=== PATIENT | male | born 1985 | race Caucasian/White ===

== ENCOUNTER 2023-07-29 17:40 | Inpatient (IN) | payer MEDICARE, SELFPAY ==
[2023-07-29 14:33] VITALS: BP 155/86
[2023-07-29 14:54] LABS: % Basophils 0.9 % (0-2); % Eosinophils 0.9 % (0-6); % Immature Granulocytes 0.2 % (0-0.5); % Lymphocytes 27.7 % (20.5-51.1); % Monocytes 12.4 % (1.7-9.3); % Neutrophils 57.9 % (42.2-75.2); Absolute Basophils 0.1 10^3/uL (0-0.2); Absolute Eosinophils 0.1 10^3/uL (0-0.7); Absolute Lymphocytes 2.7 10^3/uL (1.2-3.4); Absolute Monocytes 1.2 10^3/uL (0.1-0.6); Absolute Neutrophils 5.6 10^3/uL (1.4-6.5); Hematocrit 35.6 % (39.0-52.0); Hemoglobin 12.8 g/dL (13.0-18.0); Mean Corpuscular Volume 72.2 fL (80.0-94.0); Mean Platelet Volume 9.6 fL (7.4-10.4); Nucleated Red Blood Cells % 0 % (-); Platelet Count 234 10^3/uL (130-400); Red Blood Cell Count 4.93 10^6/uL (4.70-6.10); Red Cell Dist. Width 17.3 % (11.5-14.5); White Blood Cell Count 9.6 10^3/uL (4.8-10.8)
[2023-07-29 15:05] LABS: Amphetamines Positive (Negative); Barbiturates Negative (Negative); Benzodiazepines Negative (Negative); Blood Urea Nitrogen 25 mg/dl (9-20); Buprenorphine Negative (Negative); Calcium 9.6 mg/dl (8.4-10.2); Carbon Dioxide 29 mmol/L (22-30); Chloride 98 mmol/L (98-107); Cocaine Negative (Negative); Glucose 110 mg/dl (70-99); Marijuana Positive (Negative); Methadone Negative (Negative); Methamphetamines Positive (Negative); Opiates Negative (Negative); Phencyclidine Negative (Negative); Potassium 2.8 mmol/L (3.5-5.1); Sodium 136 mmol/L (135-145); Tricyclic Antidepressants Negative (Negative); eGFR > 60.00
[2023-07-29 15:06] LABS: Alcohol None Detected
[2023-07-29 15:20] LABS: Fentanyl, Urine Negative (Negative)
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
[2023-07-29] MEDS: KCL 40 MEQ PO (15:50)
[2023-07-29] MEDS: NSS 1000 IV ×2 (15:50→22:06)
[2023-07-29] MEDS: KCL 270 MEQ IV (16:02)
[2023-07-29 16:10] LABS: Creatine Phosphokinase 1594 U/L (55-170)
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
--- NOTE | 2023-07-29 16:55 | PHANOTE ---
Addendum entered by Tracy Hernadez 07/29/23 17:18:
Spoke with nursing office at [facility] in [place]. They stated pt was discharged from them on Levetiracetam 500mg q12, Seroquel 200mg HS, and Metoprolol 50mg Daily. Medication list updated with discharge information.
Original Note:
Med Rec Note:
Pt does not know the doses of his medications, called [facility], neither have any recently fills or prescriptions for Seroquel or Metoprolol. Called [facility] and they don't have any medication information for pt.
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
[2023-07-29 20:26] VITALS: BP 124/82
[2023-07-29] MEDS: KEPPRA 500 MG PO (22:10)
[2023-07-29] MEDS: SEROQUEL 200 MG PO (22:11)
[2023-07-29 22:40] LABS: Urine Albumin Trace (Neg - Trace); Urine Bilirubin Negative (Negative); Urine Character Clear (Clear); Urine Color Yellow; Urine Glucose Negative (Negative); Urine Ketone Trace (Negative); Urine Leukocyte Trace (Negative); Urine Nitrite Negative (Negative); Urine Occult Blood Negative (Negative); Urine Urobilinogen Negative (Neg - 1+)
[2023-07-29 22:54] LABS: Urine Bacteria Moderate (Negative); Urine Hyaline Cast >15 /LPF (0-2); Urine Red Blood Cell 0-2 /HPF (0-2)
[2023-07-29 23:06] VITALS: BMI 41.9
[2023-07-29 23:44] VITALS: BP 121/57
[2023-07-30] VITALS (7 sets, daily range): BP systolic 113–146; BP diastolic 67–89; BMI 41.3; BMI 38.5
[2023-07-30] MEDS: NSS 1000 IV ×3 (06:00→22:50)
[2023-07-30 06:05] LABS: % Basophils 1.2 % (0-2); % Eosinophils 3.6 % (0-6); % Monocytes 14.7 % (1.7-9.3); % Neutrophils 35.5 % (42.2-75.2); Absolute Basophils 0.1 10^3/uL (0-0.2); Absolute Eosinophils 0.2 10^3/uL (0-0.7); Absolute Lymphocytes 1.9 10^3/uL (1.2-3.4); Absolute Monocytes 0.6 10^3/uL (0.1-0.6); Absolute Neutrophils 1.5 10^3/uL (1.4-6.5); Hematocrit 32.8 % (39.0-52.0); Hemoglobin 11.8 g/dL (13.0-18.0); Mean Corpuscular Hgb 26.2 pg (27.0-31.0); Mean Corpuscular Volume 72.9 fL (80.0-94.0); Mean Platelet Volume 10.1 fL (7.4-10.4); Nucleated Red Blood Cells % 0 % (-); Platelet Count 216 10^3/uL (130-400); Red Cell Dist. Width 17.2 % (11.5-14.5); White Blood Cell Count 4.2 10^3/uL (4.8-10.8)
[2023-07-30 06:11] LABS: ALT (SGPT) 52 U/L (0-50); AST (SGOT) 69 U/L (17-59); Albumin 3.7 g/dl (3.5-5.0); Alkaline Phosphatase 95 U/L (38-126); Blood Urea Nitrogen 19 mg/dl (9-20); Calcium 8.7 mg/dl (8.4-10.2); Carbon Dioxide 26 mmol/L (22-30); Chloride 109 mmol/L (98-107); Creatine Phosphokinase 1025 U/L (55-170); Estimated Creatinine Clearance > 125 ml/min; Glucose 116 mg/dl (70-99); Potassium 3.4 mmol/L (3.5-5.1); Sodium 140 mmol/L (135-145); Total Bilirubin 2.2 mg/dl (0.2-1.3); Total Protein 6.7 g/dl (6.3-8.2); eGFR > 60.00
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
[2023-07-30] MEDS: KEPPRA 500 MG PO ×2 (08:06→20:08)
[2023-07-30] MEDS: KCL 40 MEQ PO (08:06)
--- NOTE | 2023-07-30 10:00 | PTCARENOTE ---
Received patient from ED into room 2127. Patient AAOx3, VSS, NSR on matrix bath attendant, ambulatory in room. Patient okay to shower per MD, patient showered and dressed independently, assisted back to bed and onto tele monitor by tech. NSS infusing
through R wrist @ 120 ml/hr. Patient oriented to room and call [place], states no concerns at this time. Psych at bedside with patient.
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
[2023-07-30] MEDS: TOPROL XL 50 MG PO (10:18)
--- NOTE | 2023-07-30 16:21 | CM ---
Initial assessment completed with pt at bedside.
Pt is a 31yr old male admitted with IV Meth use and Hallucinations.
Pt was at [facility] when he left abruptly 2 weeks ago. Per pt, he has been mostly living on the streets since. He came to the hospital when he started to have visual hallucinations.
Pt reports that he has been in and out of rehabs. Previous hospital stay notes talk about outpatient [facility] involvement, but pt says he has not had alot of interaction with them.
SW spoke with Samuel at [facility] and sent clinical information. Samuel working on Rehab placement. Pt verbalizes that he really wants to get clean.
Pt does not have a PCP. Pt uses [facility]
PLAN; Inpt Rehab
[2023-07-30] MEDS: REMERON 7.5 MG PO (22:36)
[2023-07-30] MEDS: MELATONIN 10 MG PO (22:49)
[2023-07-31 03:31] VITALS: BP 150/92
[2023-07-31 06:14] LABS: % Basophils 0.7 % (0-2); % Eosinophils 3.7 % (0-6); % Immature Granulocytes 0.2 % (0-0.5); % Lymphocytes 41.7 % (20.5-51.1); % Monocytes 13.4 % (1.7-9.3); % Neutrophils 40.3 % (42.2-75.2); Absolute Eosinophils 0.2 10^3/uL (0-0.7); Absolute Lymphocytes 2.3 10^3/uL (1.2-3.4); Absolute Monocytes 0.7 10^3/uL (0.1-0.6); Absolute Neutrophils 2.2 10^3/uL (1.4-6.5); Hematocrit 32.9 % (39.0-52.0); Hemoglobin 11.4 g/dL (13.0-18.0); Mean Corp Hgb Conc. 34.7 g/dL (33.0-37.0); Mean Corpuscular Hgb 25.7 pg (27.0-31.0); Mean Corpuscular Volume 74.3 fL (80.0-94.0); Mean Platelet Volume 10.3 fL (7.4-10.4); Nucleated Red Blood Cells % 0 % (-); Platelet Count 213 10^3/uL (130-400); Red Blood Cell Count 4.43 10^6/uL (4.70-6.10); Red Cell Dist. Width 17.4 % (11.5-14.5); White Blood Cell Count 5.4 10^3/uL (4.8-10.8)
[2023-07-31 06:58] LABS: ALT (SGPT) 66 U/L (0-50); AST (SGOT) 73 U/L (17-59); Albumin 3.3 g/dl (3.5-5.0); Alkaline Phosphatase 121 U/L (38-126); Blood Urea Nitrogen 11 mg/dl (9-20); Calcium 8.7 mg/dl (8.4-10.2); Carbon Dioxide 24 mmol/L (22-30); Chloride 112 mmol/L (98-107); Creatine Phosphokinase 572 U/L (55-170); Estimated Creatinine Clearance > 125 ml/min; Glucose 101 mg/dl (70-99); Potassium 3.7 mmol/L (3.5-5.1); Sodium 142 mmol/L (135-145); Total Bilirubin 0.9 mg/dl (0.2-1.3); Total Protein 6.2 g/dl (6.3-8.2); eGFR > 60.00
[2023-07-31 08:22] VITALS: BP 147/89
[2023-07-31] MEDS: TOPROL XL 50 MG PO (09:06)
[2023-07-31] MEDS: KEPPRA 500 MG PO (09:06)
[2023-07-31 11:33] VITALS: BP 148/98
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
[2023-07-31 14:30] VITALS: BP 166/108
--- NOTE | 2023-07-31 14:45 | CM ---
[facility] liaison Samuel, has arranged for patient to be discharged to [facility] for inpatient substance abuse therapy. Samuel has given report to [facility] staff and provided records. Transport has been arranged for scheduled machine pecan picker at
3:00PM by [facility].
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
== END 2023-07-31 14:59 | disposition other institution (70) | DRG 683 ==
LOC: 2 NORTH 17:40
PROVIDERS: Clinical Nurse Specialist Family Health; Physician Assistant Medical; ADMITTING PHYSICIAN Internal Medicine; CONSULT PHYSICIAN Psychiatry & Neurology Psychiatry; EMERGENCY PHYSICIAN Emergency Medicine
DX: N17.9 Acute kidney failure, unspecified (principal); M62.82 Rhabdomyolysis; Z59.00 Homelessness unspecified; F15.10 Other stimulant abuse, uncomplicated; F12.10 Cannabis abuse, uncomplicated; I10 Essential (primary) hypertension; F32.A Depression, unspecified; E66.9 Obesity, unspecified; Z68.38 Body mass index [BMI] 38.0-38.9, adult; E87.6 Hypokalemia; R44.1 Visual hallucinations; H54.62 Unqualified visual loss, left eye, normal vision right eye; E86.9 Volume depletion, unspecified; R94.31 Abnormal electrocardiogram [ECG] [EKG]; Z91.199 Patient's noncompliance with other medical treatment and regimen due to unspecified reason; V89.2XXS Person injured in unspecified motor-vehicle accident, traffic, sequela; Z86.69 Personal history of other diseases of the nervous system and sense organs; Z71.51 Drug abuse counseling and surveillance of drug abuser; Z62.810 Personal history of physical and sexual abuse in childhood; Z86.59 Personal history of other mental and behavioral disorders; Z63.4 Disappearance and death of family member; Z87.820 Personal history of traumatic brain injury; Z81.4 Family history of other substance abuse and dependence
CPT/HCPCS: 80048; 80053; 80306; 80307; 81003; 81015; 82077; 82550; 83735; 85025; 87070; 87086; 93005; 96361; 96374; 99284

== ENCOUNTER 2023-12-14 03:44 | Emergency (ER) | payer MEDICARE, SELFPAY ==
[2023-12-14 03:51] VITALS: BP 172/104
--- NOTE | 2023-12-14 05:29 | ED.GENMED ---
History of Present Illness
General
Chief Complaint: Substance Abuse
Source: patient
Exam Limitations: none
Time Seen by Provider: 12/14/23 04:48
Nursing documentation reviewed up to this point in time: agreed with
History of Present Illness
History of Present Illness:
Patient is a 38-year-old male with history of TBI, ADHD, depression, substance abuse presenting to the emergency department for drug abuse and rehab placement. Patient states that he would like to get clean from using meth. Patient states that he
uses meth 'as much as I can'. He uses both by injection and snorting. Patient last used meth this morning. Patient denies any other drug use. Patient denies any alcohol abuse. Patient denies any SI, HI, or auditory/visual hallucinations.
Patient has known history of substance abuse and has been in rehab recently. Patient is currently homeless.
Patient denies any physical complaints today. No other concerns.
Past History
Past History
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
ED Past Surgical History: Brain (Craniotomy after traumatic injury) and Other (Craniotomy, PEG tube, tracheostomy after traumatic injury.)
Social History
Tobacco: Non-smoker
Alcohol: None
Drug: IVDA (Methamphetamines) and Other
Personal: Single
Living: alone
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
Family History
Family History: Other (Noncontributory)
Review of Systems
Review of Systems
Allergies reviewed?: Yes
All Other Systems: ROS reviewed and negative except as documented in HPI and ROS
Phy Exam
Physical Exam
Physical Exam:
Vitals: Hypertensive, otherwise vital signs stable. Afebrile
General: Patient is in no acute distress. Does not maintain eye contact.
Skin: Warm and dry, no rashes or lesions
Head: Normocephalic, atraumatic
Throat: Protecting airway
Neck: Normal ROM, no cervical spine tenderness
Cardiac: Regular rate
Pulm: No apparent respiratory distress
Abdomen: Nondistended
Extremities: No evidence of cyanosis or edema
Neuro: Grossly intact
Psychiatric: Normal affect.
Course
Orders/Labs/Results
Orders:
Orders
12/14/23 05:25
Fentanyl, Urine Urgent
Urine Drug Abuse Screen Urgent
Date Specimen was Collected: 12/14/23
Time Specimen was Collected: 05:13
Abnormal Lab Results
12/14/23
05:25
Ur Amphetamines Screen Positive H
(Negative)
U Methamphetamines Scrn Positive H
(Negative)
Vital Signs
Initial and Last Documented VS:
Initial Vital Signs
Temp Pulse Resp BP Pulse Ox
98.1 F 94 16 172/104 98
12/14/23 03:51 12/14/23 03:51 12/14/23 03:51 12/14/23 03:51 12/14/23 03:51
Last Documented Vital Signs
Temp Pulse Resp BP Pulse Ox
97.9 F 97 18 168/106 100
12/14/23 05:38 12/14/23 10:01 12/14/23 10:01 12/14/23 10:01 12/14/23 10:01
MDM/Problems Addressed
Differential Diagnosis Includes:
Not limited to: Polysubstance abuse, etc
MDM/Problems Addressed:
38-year-old male presenting with substance abuse currently seeking rehab placement. Patient uses meth. Last use yesterday. No other complaints. Patient does have a well-documented history of similar with recent rehab placement. Patient
hypertensive on arrival, otherwise stable vital signs. No physical complaints today. Exam as above. [facility] at bedside to discuss placement options with patient. Will obtain UDS.
UDS positive for amphetamines and methamphetamines. Placement by [facility] pending.
Chronic conditions affecting care:
Depression, substance abuse
Acute Exacerbation and/or Progression of Chronic Illness:
N/A
*Pulse Oximetry
Patient hypoxic: no
*EKG
Interpreted by ED Provider?: NA
*[employer] Interpretation
Rate: [employer]- N/A
*Critical Care Note
Total Time (30-74mins, 75-104mins- exclusive of procedures): Not Applicable
Patient Management
Social determinants of health affecting care: Living situation, Substance abuse, Financial situation, Poor outpatient follow-up and Poor social support
Escalation/DeEscalation of care consider admission/obs:
Patient to be disposition per [facility]
ED Attending Note
-
Portions of this chart may have been created with voice recognition software.� Occasional wrong word or��sound alike� substitutions may have occurred due to the inherent limitations of voice recognition software.
Discharge Plan
Departure
Patient Disposition: Acute Rehab Facility
Date of Disposition: 12/14/23
Time of Disposition: 06:53
Patient with high blood pressure during this ER visit?: Yes
Condition: Good
Covid-19: Not Applicable
Discharge Problem:
Active substance abuse
Instructions: Drug Misuse and Addiction (DC)
Prescriptions:
No Action
Metoprolol
50 mg PO DAILY
levetiracetam 500 mg Tablet
500 mg PO BID
mirtazapine 7.5 mg Tablet
7.5 mg PO HS Qty: 30 0RF
melatonin 5 mg Tablet
10 mg PO HS Qty: 30 0RF
Referrals:
NONE,* [Family Provider] -
Interventions
Interventions:
*Risk Screen - Suicide Last Done: 12/14/23 03:51
*General Assessment Last Done: 12/14/23 10:38
*Neglect/Abuse Screening Last Done: 12/14/23 03:51
ED- Fall Risk Assessment Last Done: 12/14/23 08:07
*ED COVID-19 Vaccine History Last Done: 12/14/23 03:51
*Nursing Disposition Last Done: 12/14/23 10:38
ED-Psychological Assessment Last Done: 12/14/23 08:07
Discharge Date and Time
Discharge Date/Time: 12/14/23 10:39
Print Language: ERITREAN
[2023-12-14 05:38] VITALS: BP 139/95
[2023-12-14 05:44] LABS: Amphetamines Positive (Negative); Barbiturates Negative (Negative); Benzodiazepines Negative (Negative); Buprenorphine Negative (Negative); Cocaine Negative (Negative); Marijuana Negative (Negative); Methadone Negative (Negative); Methamphetamines Positive (Negative); Opiates Negative (Negative); Phencyclidine Negative (Negative); Tricyclic Antidepressants Negative (Negative)
[2023-12-14 06:36] LABS: Fentanyl, Urine Negative (Negative)
[2023-12-14 10:01] VITALS: BP 168/106
== END 2023-12-14 10:39 ==
LOC: EMR 03:44
PROVIDERS: Physician Assistant; EMERGENCY PHYSICIAN Emergency Medicine
DX: F19.10 Other psychoactive substance abuse, uncomplicated (principal); Z59.00 Homelessness unspecified; F32.A Depression, unspecified
CPT/HCPCS: 99285; 80306; 80307